=== PATIENT | female | born 1980 | race Caucasian/White ===

== ENCOUNTER 2017-02-24 16:27 | Emergency (ER) | payer BC ==
[2017-02-24 18:04] VITALS: BP 142/92
[2017-02-24] MEDS ORDERED: Ibuprofen TAB* 600 MG PO ONE (18:11)
[2017-02-24] MEDS ORDERED: Clindamycin CAP* 150 MG PO ONE (18:46)
--- NOTE | 2017-02-24 18:49 | UC ---
Throat Pain/Nasal Tim HPI - History of Current Complaint Chief Complaint: UCRespiratory Stated Complaint: SORE THROAT Hx Obtained From: Patient Hx Last Menstrual Period: 01/20/17 ?: No Onset/Duration: Sudden Onset - yesterday with sore throat, Lasting Days - 1, Worse Since - today. Severity: Severe Cough: None Associated Signs & Symptoms: Positive: Dysphagia. Negative: FB Sensation, Drooling, Wheezing, Hoarseness, Sinus Discomfort, Nasal Discharge, Vomiting, Rash - Epiglottits Risk Factors Epiglottis Risk Factors: Negative - Allergies/Home Medications Allergies/Adverse Reactions: Allergies Allergy/AdvReac Type Severity Reaction Status Date / Time Amoxicillin Allergy Rash Verified 02/24/17 17:58 Azithromycin Allergy Rash Verified 02/24/17 17:58 Latex Allergy Hives Verified 02/24/17 17:58 Penicillins [PCN] Allergy Rash Verified 02/24/17 17:58 Home Medications: Home Medications Levonorgestrel (Iud) [Mirena IUD] 20 mcg IU 02/24/17 [History] PMH/Surg Hx/FS Hx/Imm Hx Endocrine History Of: Denies: Diabetes Cardiovascular History Of: Denies: Hypertension, Pacemaker/ICD, Congestive Heart Failure Respiratory History Of: Reports: Asthma GI/ History Of: Denies: Renal Disease - Surgical History Surgical History: Yes Surgery Procedure, Year, and Place: WRIST ARTHROSCOPY. HYSTOSCOPY. D&C - Family History Known Family History: Positive: Cardiac Disease, Hypertension, Diabetes - Social History Occupation: Employed Full-time Lives: Alone Alcohol Use: Occasionally Substance Use Type: None Smoking Status (MU): Never Smoked Tobacco Review of Systems ENT: Sore Throat All Other Systems Reviewed And Are Negative: Yes Physical Exam Triage Information Reviewed: Yes Appearance: Ill-Appearing - mild, Obese Vital Signs: Initial Vital Signs Temp 98.7 F 02/24/17 17:59 Pulse 82 02/24/17 17:59 Resp 20 02/24/17 17:59 BP 142/92 02/24/17 17:59 Pulse Ox 98 02/24/17 17:59 Vital Signs Reviewed: Yes Eyes: Positive: Conjunctiva Clear ENT: Positive: Pharyngeal erythema - with palatal petechia, TMs normal, Tonsillar swelling, Tonsillar exudate Neck: Positive: Supple, Tenderness @ - bilateral anterior cervical, Enlarged Nodes @ - bilateral anterior cervical Respiratory Exam: Normal Cardiovascular Exam: Normal Musculoskeletal: Positive: ROM Limited @ - right ankle in walking boot Neurological Exam: Normal Psychological Exam: Normal Skin Exam: Normal Throat Pain/Nasal Course/Dx - Differential Dx/Diagnosis Differential Diagnosis/HQI/PQRI: Peritonsillar Abscess, Pharyngitis, URI Provider Diagnoses: Acute pharyngitis Discharge - Discharge Plan Condition: Stable Disposition: HOME Prescriptions: Clindamycin CAP* [Cleocin 150 MG CAP*] 150 mg PO QID #40 cap Patient Education Materials: Pharyngitis (ED), Strep Throat (ED), Clindamycin ( By mouth) Additional Instructions: It could be mononucleosis. If the throat is not better in 36 hours stop the antibiotic. It is best to get the mono test done 2 weeks after the onset of symptoms. Go to the ER if you have difficulty swallowing.
== END 2017-02-24 19:15 | disposition home or self-care (01) ==
LOC: UCCORT 16:27
DX: J02.9 Acute pharyngitis, unspecified (principal); J45.909 Unspecified asthma, uncomplicated; E66.9 Obesity, unspecified; Z88.1 Allergy status to other antibiotic agents; Z88.0 Allergy status to penicillin
CPT/HCPCS: 87651; 99212; A9270-GY; G0463

== ENCOUNTER 2017-05-28 15:42 | Emergency (ER) | payer SELFPAY ==
--- NOTE | 2017-05-28 16:52 | ED ---
Skin Complaint - HPI Summary HPI Summary: 36 y/o female presents to the urgent care c/o red rash in different parts of her body since yesterday 05/27/2017. Pt states it itches a lot. Rash started in her RT arm and then at night it appeared in her back and some in her legs. Pt has taking Benadyl PO and apply hydrocortisone topical cream w/o relief. Pt is allergic to grass and dust mite. Pt denies being out in the [place]. Denies fever , SOB, swelling, chest pain, abdominal pain, N/V/D. - History of Current Complaint Chief Complaint: UCSkin Time Seen by Provider: 05/28/17 16:49 Stated Complaint: rash Hx Obtained From: Patient Hx Last Menstrual Period: IUD Onset/Duration: Started Days Ago, Still Present Skin Exposure Onset/Duration: Days Ago - 1 day Timing: Constant, Lasting Days Onset Severity: Mild Current Severity: Moderate Pain Intensity: 0 Pain Scale Used: 0-10 Numeric Skin Location: Diffuse - in the Rt arm, back , upper chest and B/L legs Character: Pruritus Aggravating Symptom(s): Touch Alleviating Symptom(s): OTC Meds Associated Signs & Symptoms: Negative Related History: Other: - unkonwn source - Allergy/Home Medications Allergies/Adverse Reactions: Allergies Allergy/AdvReac Type Severity Reaction Status Date / Time Amoxicillin Allergy Rash Verified 05/28/17 16:47 Azithromycin Allergy Rash Verified 05/28/17 16:47 Latex Allergy Hives Verified 05/28/17 16:47 Penicillins [PCN] Allergy Rash Verified 05/28/17 16:47 Home Medications: Home Medications Hydrocortisone 1% CREAM* [Hytone Cream 1%*] 1 applic TOPICAL BID PRN 05/28/17 [ History Confirmed 05/28/17] PMH/Surg Hx/FS Hx/Imm Hx Previously Healthy: Yes Endocrine/Hematology History: Denies: Hx Diabetes Cardiovascular History: Denies: Hx Congestive Heart Failure, Hx Hypertension, Hx Pacemaker/ICD Respiratory History: Reports: Hx Asthma History: Reports: Other Problems/Disorders - negative for cholecystectomy and appendectomy Denies: Hx Renal Disease Sensory History: Denies: Hx Hearing Aid Psychiatric History: Denies: Hx Panic Disorder - Surgical History Surgery Procedure, Year, and Place: WRIST ARTHROSCOPY. HYSTOSCOPY. D&C Infectious Disease History: No Infectious Disease History: Denies: Traveled Outside the [place] in Last 30 Days - Family History Known Family History: Positive: Cardiac Disease, Hypertension, Diabetes - Social History Occupation: Employed Full-time Lives: With Family Alcohol Use: Rare Substance Use Type: Reports: None Smoking Status (MU): Former Smoker Review of Systems Constitutional: Negative Eyes: Negative ENT: Negative Cardiovascular: Negative Respiratory: Negative Gastrointestinal: Negative Genitourinary: Negative Musculoskeletal: Negative Positive: Rash - RT arm, back, upper chest and B/L legs with pruritis red rash Neurological: Negative Psychological: Normal All Other Systems Reviewed And Are Negative: Yes Physical Exam Triage Information Reviewed: Yes Vital Signs On Initial Exam: Initial Vitals Temp Pulse Resp BP Pulse Ox 98.1 F 90 16 133/101 100 05/28/17 16:40 05/28/17 16:40 05/28/17 16:40 05/28/17 16:40 05/28/17 16:40 Vital Signs Reviewed: Yes Appearance: Positive: Well-Appearing, No Pain Distress, Well-Nourished, Obese Skin: Positive: Warm, Skin Color Reflects Adequate Perfusion, Dry, Other - Positive eythematous maculopapular eruption in the RT medial aspect of the forearm, mid back, Very discrete eruption in the upper chest and B/L legs. signs of scoraitions observed. Head/Face: Positive: Normal Head/Face Inspection Eyes: Positive: Normal, EOMI, ELENITA, Conjunctiva Clear ENT: Positive: Normal ENT inspection, Hearing grossly normal, Pharynx normal, TMs normal Neck: Positive: Supple, Nontender, No Lymphadenopathy Respiratory/Lung Sounds: Positive: Clear to Auscultation, Breath Sounds Present Cardiovascular: Positive: Normal, RRR, Pulses are Symmetrical in both Upper and Lower Extremities, S1, S2 Abdomen Description: Positive: Nontender, No Organomegaly, Soft. Negative: CVA Tenderness (R), CVA Tenderness (L) Bowel Sounds: Positive: Present Musculoskeletal: Positive: Normal, Strength/ROM Intact Neurological: Positive: Normal, Sensory/Motor Intact, Alert, Oriented to Person Place, Time, CN Intact II-III Psychiatric: Positive: Normal Diagnostics - Vital Signs Vital Signs Temp Pulse Resp BP Pulse Ox 05/28/17 16:40 98.1 F 90 16 133/101 100 - Laboratory Lab Statement: Any lab studies that have been ordered have been reviewed, and results considered in the medical decision making process. Course/Dx - Course Course Of Treatment: 36 y/o female presents to the urgent care c/o red rash in different parts of her body since yesterday 05/27/2017. Pt states it itches a lot. Rash started in her RT arm and then at night it appeared in her back and some in her legs. Pt has taking Benadyl PO and apply hydrocortisone topical cream w/o relief. Pt is allergic to grass and dust mite. Pt denies being out in [place]. Denies fever, SOB, swelling, chest pain, abdominal pain, N/V/D. HX obtained. Pt Rx prednisone PO taper dose, hydroxyzine PO to alleviate symptoms. Advised to stop the Benadryl PO and continue applying the hydrocortisone 1% cream. Advised if symptoms do not improve to return to the urgetn care or f/u with her PCP. PT's BP today is elevated. Pt advised to decrease salt in her diet, monitor BP and if it continues to be elevated to f/u with PCP for further management. Pt understood and agreed. - Differential Diagnoses - Skin Complaint Differential Diagnoses: Allergic Reaction, Contact Dermatitis, Drug Rash, Local Allergic Reaction, Scabies, Tick Born Illness, Urticaria - Diagnoses Provider Diagnoses: Rash and nonspecific skin eruption, Blood pressure elevated without history of HTN Discharge - Discharge Plan Condition: Stable Disposition: HOME Prescriptions: hydrOXYzine HCL TAB* [Atarax 25 MG TAB*] 25 mg PO TID PRN #15 tab PRN Reason: Pruritis predniSONE TAB* [Deltasone TAB*] 20 mg PO DAILY #11 tab Patient Education Materials: Acute Rash (ED) Referrals: William Lipscomb MD [Primary Care Provider] - 3 Days Additional Instructions: 1-Please take medications as directed to alleviate symptoms. 2-If symptoms do not improve please return to the urgent care or f/u with your PCP for further treatment. 3- Your BP today is elevated, please decrease salt in your diet, monitor your BP , if it continues to be elevated, please f/u with your PCP for further management
[2017-05-28 17:25] VITALS: BP 132/100
== END 2017-05-28 17:37 | disposition home or self-care (01) ==
LOC: UCCORT 15:42
DX: R21 Rash and other nonspecific skin eruption (principal); R03.0 Elevated blood-pressure reading, without diagnosis of hypertension; J45.909 Unspecified asthma, uncomplicated; Z88.0 Allergy status to penicillin; Z88.1 Allergy status to other antibiotic agents; Z91.040 Latex allergy status; Z87.891 Personal history of nicotine dependence
CPT/HCPCS: 99212; G0463